=== PATIENT | male | born 1940 | race African-American/Black ===

== ENCOUNTER 2016-11-10 09:40 | Emergency (ER) | payer MEDICARE, MEDICAID ==
[~2016-11-10] VITALS: Ht 175.3 cm; Wt 85.0 kg
[2016-11-10] MEDS ORDERED: HYDR25TA PO (09:57)
[2016-11-10] MEDS ORDERED: VERA240C2 PO (09:57)
[2016-11-10] MEDS ORDERED: SITA50TA3 PO (09:57)
[2016-11-10] MEDS ORDERED: METF500T4 PO (09:57)
[2016-11-10] MEDS ORDERED: RIVA20TA PO (09:57)
[2016-11-10] MEDS ORDERED: DULO30CA2 PO (09:57)
[2016-11-10] MEDS ORDERED: CLOP75TA33 PO (09:57)
[2016-11-10] MEDS ORDERED: SIMV40TA5 PO (09:57)
[2016-11-10] MEDS ORDERED: CEPH500C2 PO (09:57)
[2016-11-10] MEDS ORDERED: NEBI20TA2 PO (09:57)
[2016-11-10] MEDS ORDERED: TAMS0.4C31 PO (09:57)
[2016-11-10] MEDS ORDERED: INVOKANA PO (09:57)
[2016-11-10] MEDS ORDERED: HYDR-523 PO (09:58)
[2016-11-10 11:05] LABS: HEMATOCRIT. 43.8 % (42.0-52.0); HEMOGLOBIN. 14.2 g/dL (14.0-18.0); MEAN CORPUSCULAR HEMOGLOBIN 28.3 pg (28.0-32.0); MEAN CORPUSCULAR VOLUME 87.3 fL (80.0-94.0); MEAN PLATELET VOLUME 7.2 fl (7.4-10.4); PLATELET 318 x1000/uL (130-400); RED BLOOD CELL COUNT 5.01 mill/uL (4.7-6.1); RED CELL DISTRIBUTION WIDTH 13.6 % (11.6-14.6)
[2016-11-10 11:13] LABS: INR 1.1; PROTHROMBIN TIME 11.5 sec
[2016-11-10 11:22] LABS: CARBON DIOXIDE 27 mEq/L (21-32); CHLORIDE 106 mEq/L (98-107); TROPONIN I < 0.02 ng/mL (0.00-0.04)
[2016-11-10 11:50] LABS: PLATELET ESTIMATE NORMAL
[2016-11-10 13:00] LABS: CLARITY URINE CLOUDY (CLEAR); COLOR URINE YELLOW (YELLOW); GLUCOSE URINE 3+ (NEGATIVE); KETONES URINE NEGATIVE (NEGATIVE); LEUKOCYTE ESTERASE URINE 2+ (NEGATIVE); NITRITE URINE NEGATIVE (NEGATIVE); OCCULT BLOOD URINE 2+ (NEGATIVE); PH URINE 5.5 (4.5-8.0); PROTEIN URINE TRACE (NEGATIVE); SPECIFIC GRAVITY URINE 1.024 (1.005-1.030)
[2016-11-10] MEDS ORDERED: KETOROLAC 30MG/ML VIAL IV ONE (14:15)
[2016-11-10 17:07] VITALS: BP 113/59
== END 2016-11-10 17:13 | disposition home or self-care (01) ==
LOC: ER 10:47 → CANBEDREQ 18:52
DX: N45.3 Epididymo-orchitis (principal); N39.0 Urinary tract infection, site not specified; I10 Essential (primary) hypertension; E11.9 Type 2 diabetes mellitus without complications; E78.00 Pure hypercholesterolemia, unspecified
CPT/HCPCS: 36415; 71010; 76870; 80053; 81001; 83690; 84484; 85025; 85610; 93976; 96374; 99285; J1885